=== PATIENT | female | born 1995 | race Caucasian/White ===

== ENCOUNTER 2024-02-17 02:25 | Outpatient (CLI) | payer BC ==
[~2024-02-17] VITALS: Ht 165.1 cm; Wt 65.5 kg
[~2024-02-17 02:25] MED LIST: ALLEGRA 180MG180 MG PO; CELEXA 20MG20 MG/TAB PO; FLEXERIL 1010 MG/TAB PO; PREDNISONE20 MG PO; RT ADVAIR 128 DISKUS IH; ZYRTEC 10MG10 MG PO
--- NOTE | 2024-02-17 02:35 | NUR ---
[address] SANDERS FROM [facility] IN [facility], PRESENTS TO OBT WITH COMPLAINT OF N/V. UNABLE TO HOLD DOWN FOOD OR FLUID SINCE ABOUT 1200 ON [id number]. PT STATES SHE IS CONCERENED THAT SHE IS DEHYDRATED AND WOULD LIKE TO BE REHYDRATED AND MEDICATION FOR NAUSEA. PT PLACED ON EFM X2 AND VS OBTAINED: WNL. PT DENIES LOF/VAG BLEEDING AND ENDORSES MOVEMENT.
[2024-02-17 03:30] VITALS: BP 108/68; PULSE 84; TEMP 97.7
[2024-02-17] MEDS ORDERED: LR 1,000 ML IV ONE (03:30)
[2024-02-17] MEDS ORDERED: Ondansetron 4 MG/2 ML VIAL IV ONE (03:30)
[2024-02-17] MEDS ORDERED: PRENATAL TABLET PO (04:42)
[2024-02-17] MEDS ORDERED: WIXELA 100-501 EACH IH (04:43)
[2024-02-17] MEDS ORDERED: ASPIRIN E.C. 8181 MG PO (04:44)
[2024-02-17] MEDS ORDERED: LEXAPRO 10MG10 MG PO (04:47)
--- NOTE | 2024-02-17 05:18 | NUR ---
WRITTEN AND VERBAL DC INSTRUCTIONS PROVIDED TO PT. PT VERBALIZED UNDERSTANDING AND DENIES QUESTIONS/CONCERNS AT THIS TIME.
== END 2024-02-17 05:23 | disposition home or self-care (01) ==
LOC: LDRO 02:25 → LDR 02:35 → LDRO 05:23
DX: O21.2 Late vomiting of pregnancy (principal); Z3A.29 29 weeks gestation of pregnancy
CPT/HCPCS: OP; J2405; J7120